=== PATIENT | female | born 1970 | race African-American/Black ===

== ENCOUNTER 2016-09-25 14:53 | Emergency (ER) | payer BC, OTHER ==
[~2016-09-25] VITALS: Ht 160 cm; Wt 63.5 kg
--- NOTE | ~2016-09-25 | CR126 ---
[facility] Service of [facility] RADIOLOGY TEXT RESULTS PATIENT: LAM HDZ LOCATION: [place] : [birth year] UNIT #: [id number] AGE: [address]: Jerri Galloway APRN SEX: F ORDER DR: [id number] [facility] [address] [place], [place] [address] [id number] E MR#: [id number] Acc #: [id number] NAME: LAM HDZ. : 1970 SEX: F STUDY DATE/TIME: 09/25/2016 15:25 UNIT: [facility] ROOM: STUDY DESCRIPTION: CR Foot Complete Min 3 View Lt Attending Physician: Jerri Galloway A.P.R.N. Ordering Physician: Ed Jevon Mckeon M.D. Primary Care Physician: Primary Care Physician No MEDICAL IMAGING REPORT This report is preliminary unless electronic signature is present EXAM Left foot, 09/25/2016 INDICATION Foot pain and swelling after falling down steps 5 days ago. FINDINGS The tarsal, metatarsal, and phalangeal elements are all anatomically normal in position and alignment. There are no articular defects. No fractures or radiopaque foreign bodies in the soft tissues are apparent. IMPRESSION Normal foot. Dictated by... Sherif Sapp Jr., M.D. THIS IS AN ELECTRONICALLY VERIFIED REPORT Sherif Sapp Jr., M.D. at 09/27/2016 2:28 PM SKYLA/[place] TD: 09/26/2016 00:14 JOB #: [id number] MEDICAL IMAGING REPORT Page 1 of 1 COPY
--- NOTE | ~2016-09-25 | CR20 ---
[facility] A Service of [facility] & [facility] RADIOLOGY TEXT RESULTS PATIENT: LAM HDZ LOCATION: [place] : [birth year] UNIT #: [id number] AGE: [address]: Jerri Galloway APRN SEX: F ORDER DR: [id number] [facility] [address] [place], [place] [address] [id number] E MR#: [id number] Acc #: [id number] NAME: LAM HDZ. : 1970 SEX: F STUDY DATE/TIME: 09/25/2016 15:23 UNIT: [facility] ROOM: STUDY DESCRIPTION: CR Ankle Min 3 Views Lt Attending Physician: Jerri Galloway A.P.R.N. Ordering Physician: Ed Jevon Mckeon M.D. Primary Care Physician: Primary Care Physician No MEDICAL IMAGING REPORT This report is preliminary unless electronic signature is present EXAM Left ankle 09/25 INDICATIONS Foot pain and swelling, and ankle pain after falling down steps 5 days ago. FINDINGS AP, lateral, and oblique projections of the ankle show satisfactory integrity of the joint mortise with a smooth articular surface. There is no identifiable fracture, dislocation, or radiopaque foreign body. IMPRESSION Normal ankle. Dictated by... Sherif Sapp Jr., M.D. THIS IS AN ELECTRONICALLY VERIFIED REPORT Sherif Sapp Jr., M.D. at 09/27/2016 2:28 PM SKYLA/[place] TD: 09/26/2016 00:20 JOB #: [id number] MEDICAL IMAGING REPORT Page 1 of 1 COPY
[~2016-09-25 14:53] MED LIST: ACETAMINOPHEN PO; AMOXICILLIN PO; CIPRO PO; ESTROGEN PO; FIORICET 50-321 EACH PO; FIORICET W/CODE1 CAP PO; FIORICET1 TAB PO; FIORINAL CAPSUL1 CAP PO; FLAGYL PO; IBUPROFEN PO; LASIX; LISINOPRIL; LISINOPRIL PO; LISINOPRIL-HCTZ1 T15 PO; LORTAB 7.5-5001 TAB PO; MOBIC PO; NAPROXEN PO; NORVASC PO; PHENERGAN PO; PHENERGAN PR; PHENERGAN25 M1 PO; POLYETHYLENE GL17 GM PO; PREMARIN PO; PREMARIN0.625 MG PO; PRINIVIL20 M1 PO; PROMETHAZINE V118 M1 PO; SENNA PO; ZITHROMAX PO
== END 2016-09-25 16:34 | disposition home or self-care (01) ==
LOC: CFTX 14:53 → CED 14:53 → CFTX 15:43
DX: S93.402A Sprain of unspecified ligament of left ankle, initial encounter (principal); S93.602A Unspecified sprain of left foot, initial encounter; I10 Essential (primary) hypertension; F41.9 Anxiety disorder, unspecified; Z90.710 Acquired absence of both cervix and uterus; Z79.899 Other long term (current) drug therapy; Z88.8 Allergy status to other drugs, medicaments and biological substances; W10.9XXA Fall (on) (from) unspecified stairs and steps, initial encounter; Y92.009 Unspecified place in unspecified non-institutional (private) residence as the place of occurrence of the external cause
CPT/HCPCS: 29515; 73610; 73630; 99283

== ENCOUNTER 2016-10-12 18:03 | Emergency (ER) | payer BC, OTHER ==
[~2016-10-12] VITALS: Ht 160 cm; Wt 65.8 kg
== END 2016-10-12 18:49 | disposition home or self-care (01) ==
LOC: CED 18:03 → CFTX 18:03
DX: J03.90 Acute tonsillitis, unspecified (principal); J02.9 Acute pharyngitis, unspecified; I10 Essential (primary) hypertension; G43.909 Migraine, unspecified, not intractable, without status migrainosus; Z90.49 Acquired absence of other specified parts of digestive tract; Z90.710 Acquired absence of both cervix and uterus; Z88.6 Allergy status to analgesic agent; Z88.8 Allergy status to other drugs, medicaments and biological substances
CPT/HCPCS: 87651; 96372; 99283; J0561